=== PATIENT | female | born 1955 | race American Indian/Alaskan Native ===

== ENCOUNTER 2022-02-23 22:06 | Emergency (ER) | payer MEDICARE ==
--- NOTE | 2022-02-23 22:19 | Emergency Department Report ---
ED General Adult HPI - General Stated complaint: LEFT HIP PAIN/FALL Time Seen by Provider: 02/23/22 22:11 Source: patient, EMS - History of Present Illness Initial comments: Patient is 67 years old female with a recent left hip replacement at [place]. Patient brought to the emergency room via EMS for evaluation of left hip pain. Patient stated that she was climbing into her bed and all of a sudden she felt pain to the left hip radiated down to the leg. Patient denied any other injuries. - Related Data Allergies Allergy/AdvReac Type Severity Reaction Status Date / Time codeine AdvReac Rash Verified 02/23/22 22:17 ED Review of Systems ROS: Stated complaint: LEFT HIP PAIN/FALL Other details as noted in HPI Comment: All other systems reviewed and negative Constitutional: denies: chills, fever Respiratory: denies: cough, shortness of breath, SOB with exertion, SOB at rest Cardiovascular: denies: chest pain Gastrointestinal: denies: abdominal pain, nausea, vomiting Musculoskeletal: arthralgia. denies: back pain Neurological: denies: headache, weakness, numbness, paresthesias, confusion ED Past Medical Hx - Past Medical History Hx Arthritis: Yes ED Physical Exam - General General appearance: alert, in no apparent distress - Head Head exam: Present: atraumatic, normocephalic, normal inspection - Eye Eye exam: Present: normal appearance - ENT ENT exam: Present: normal exam, normal orophraynx, mucous membranes moist - Neck Neck exam: Present: normal inspection, full ROM. Absent: tenderness, meningismus - Respiratory Respiratory exam: Present: normal lung sounds bilaterally - Cardiovascular Cardiovascular Exam: Present: regular rate, normal rhythm, normal heart sounds - GI/Abdominal GI/Abdominal exam: Present: soft, normal bowel sounds. Absent: distended, tenderness, guarding, rebound, rigid, organomegaly, mass, bruit, pulsatile mass, hernia - Expanded Lower Extremity Exam Left Hip exam: Present: normal inspection. Absent: full ROM, tenderness, swelling Upper Leg exam: Present: normal inspection. Absent: tenderness, swelling Knee exam: Present: normal inspection, full ROM Lower Leg exam: Present: normal inspection, full ROM - Back Exam Back exam: Present: normal inspection, full ROM. Absent: CVA tenderness (R), CVA tenderness (L) - Neurological Exam Neurological exam: Present: alert, oriented X3, CN II-XII intact. Absent: motor sensory deficit - Psychiatric Psychiatric exam: Present: normal mood - Skin Skin exam: Present: warm, intact, normal color ED Course Vital Signs 02/23/22 02/23/22 02/23/22 22:09 22:50 23:00 Temperature Pulse Rate 72 79 78 Respiratory 16 11 L 13 Rate Blood Pressure 160/90 136/76 Blood Pressure [Right] O2 Sat by Pulse 97 96 94 Oximetry 02/23/22 02/23/22 02/23/22 23:16 23:30 23:46 Temperature Pulse Rate 76 76 83 Respiratory 26 H 22 20 Rate Blood Pressure 136/76 133/68 133/68 Blood Pressure [Right] O2 Sat by Pulse 95 95 95 Oximetry 02/24/22 02/24/22 02/24/22 00:30 00:40 00:44 Temperature 98.2 F Pulse Rate 84 83 83 Respiratory 18 14 26 H Rate Blood Pressure Blood Pressure 140/86 133/75 [Right] O2 Sat by Pulse 99 99 99 Oximetry 02/24/22 02/24/22 02/24/22 00:46 01:00 01:16 Temperature Pulse Rate 84 80 77 Respiratory 16 16 20 Rate Blood Pressure 117/70 119/67 118/70 Blood Pressure [Right] O2 Sat by Pulse 98 95 98 Oximetry 02/24/22 02/24/22 02/24/22 01:30 01:46 02:00 Temperature Pulse Rate 78 80 75 Respiratory 15 15 22 Rate Blood Pressure 127/66 113/63 146/81 Blood Pressure [Right] O2 Sat by Pulse 97 98 93 Oximetry 02/24/22 02/24/22 02/24/22 02:16 02:30 02:46 Temperature Pulse Rate 71 77 79 Respiratory 20 22 31 H Rate Blood Pressure 123/60 114/63 113/64 Blood Pressure [Right] O2 Sat by Pulse 97 97 97 Oximetry 02/24/22 02/24/22 02/24/22 03:00 03:16 03:30 Temperature Pulse Rate 76 74 67 Respiratory 19 13 12 Rate Blood Pressure 115/57 132/63 125/64 Blood Pressure [Right] O2 Sat by Pulse 100 97 98 Oximetry 02/24/22 02/24/22 02/24/22 03:46 04:00 04:26 Temperature Pulse Rate 67 77 84 Respiratory 12 28 H 28 H Rate Blood Pressure 129/64 110/62 110/62 Blood Pressure [Right] O2 Sat by Pulse 83 L Oximetry 02/24/22 02/24/22 04:30 04:46 Temperature Pulse Rate 74 67 Respiratory 13 11 L Rate Blood Pressure 146/74 140/69 Blood Pressure [Right] O2 Sat by Pulse 99 98 Oximetry - Reevaluation(s) Reevaluation #1: 02/24/22 05:01 Patient now is awake, alert and oriented x3. Patient walked to the bathroom without difficulties. 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, pulse oximeter, capnometry used, supplemental O2 applied, reversal agents at bedside, suction/airway equipment at bedside, IV secured Fentanyl: IV Midazolam: IV Complications: none Patient Tolerated Procedure: well, no complications - Orthopedic Joint Reduction Joint #1 Consent Obtained: written consent Time Out Performed: Yes Side: left Joint Reduction Location: hip Analgesia: moderate sedation Shoulder Technique Used (if applicable): traction/counter-traction Post-Reduction Neuro Exam: intact Post-Reduction Vascular Exam: intact Post Reduction X-Ray Obtained: Yes Post Reduction X-Ray Results: reduced Patient Tolerated Procedure: well, no complications ED Medical Decision Making - Radiology Data Radiology results: report reviewed - Medical Decision Making Patient is 67 years old female with a recent left hip replacement at [place]. Patient brought to the emergency room via EMS for evaluation of left hip pain. Patient stated that she was climbing into her bed and all of a sudden she felt pain to the left hip radiated down to the leg. Patient denied any other injuries. X-ray of the left hip showed superior dislocation. Using a moderate sedation I was able to reduced left hip. Postreduction x-ray confirmed reduction. I discussed this patient with Dr. Pinto, orthopedics on-call and he advised that patient need to follow-up with her orthopedics doctor in the next 2 to 3 days. Critical care attestation.: If time is entered above; I have spent that time in minutes in the direct care of this critically ill patient, excluding procedure time. ED Disposition Clinical Impression: Hip dislocation, left Disposition: 01 HOME / SELF CARE / HOMELESS Is pt being admited?: No Condition: Stable Instructions: Hip Dislocation, Moderate Conscious Sedation, Adult Additional Instructions: Please follow-up with your orthopedic doctors in 2 to 3 days. Referrals: PRIMARY CARE, [Referring] - 3-5 Days
--- NOTE | 2022-02-23 22:59 | XRay Report ---
LEFT HIP 2 VIEW(S) INDICATION / CLINICAL INFORMATION: Status post left hip replacement, lf hip pain COMPARISON: None available. FINDINGS: BONES / JOINT(S): No acute fracture. Patient is status post left total hip arthroplasty. There is sup erior dislocation of the femoral component. SOFT TISSUES: No significant abnormality. ADDITIONAL FINDINGS: None. Signer Name: Nikko Plaza DO Signed: 02/23/2022 10:55 PM Workstation Name: [id number]
[2022-02-23] MEDS ORDERED: MIDAZOLAM 5 MG/5 ML INJ MDV IV ONE (23:11)
[2022-02-23] MEDS ORDERED: fentaNYL 100 MCG/2 ML INJ IV ONE (23:11)
[2022-02-23] MEDS ORDERED: SODIUM CHLORIDE 0.9% 1000 ML 1,000 ML IV ONE (23:11)
[2022-02-23] MEDS ORDERED: MIDAZOLAM 5 MG/5 ML INJ MDV IV NR (23:45)
--- NOTE | 2022-02-24 01:31 | XRay Report ---
LEFT HIP 1 VIEW(S) INDICATION / CLINICAL INFORMATION: Post reduction. COMPARISON: None available. FINDINGS: BONES / JOINT(S): There is appropriate reduction of the left hip arthroplasty. No significant hardwar e abnormality. No acute fracture. SOFT TISSUES: No significant abnormality. ADDITIONAL FINDINGS: None. Signer Name: Nikko Plaza DO Signed: 02/24/2022 1:26 AM Workstation Name: [id number]
[2022-02-24 08:02] VITALS: BP 145/69
== END 2022-02-24 09:00 | disposition home or self-care (01) ==
LOC: ED 22:06
DX: S73.005A Unspecified dislocation of left hip, initial encounter (principal); W10.8XXA Fall (on) (from) other stairs and steps, initial encounter; Y93.89 Activity, other specified; Y92.89 Other specified places as the place of occurrence of the external cause; Y99.8 Other external cause status
CPT/HCPCS: 27265; 73501; 73502; 96360; 99284; J2250; J3010; J7030; 96361; 96374; 96375; 96376